=== PATIENT | female | born 1950 | race Caucasian/White ===

== ENCOUNTER → 2019-01-04 09:46 | Outpatient (CLI) | payer OTHER, SELFPAY ==
[2019-01-04 10:53] LABS: Homocysteine 12.8 umol/L (3.2-10.7)
[2019-01-09 20:08] LABS: Dilute Russell Viper Venom 36.4 sec (0.0-47.0); PTT-LA 32.9 sec (0.0-51.9); Protein C Antigen 111 % (60-150); Protein C, Functional 147 % (73-180)
[2019-01-10 15:54] LABS: Anti-Cardiolipin Ab, IgA, Qn < 9 APL U/mL (0-11); Anti-Cardiolipin Ab, IgG, Qn < 9 GPL U/mL (0-14); Anti-Cardiolipin Ab, IgM, Qn < 9 MPL U/mL (0-12); Antithrombin 3 Function 118 % (75-135); Interpretation Comment: (.); Protein S, Free 122 % (57-157); Protein S, Funtional 110 % (63-140); Protein S, Total 106 % (60-150)
== END ==
LOC: LAB 09:50
PROVIDERS: Family Provider Internal Medicine; PCP Internal Medicine; Referring Provider Surgery; Visit Provider Surgery
DX: I73.9 Peripheral vascular disease, unspecified (principal); I87.2 Venous insufficiency (chronic) (peripheral)
CPT/HCPCS: 36415; 81241; 83090; 85300; 85302; 85303; 85305; 85306; 86147

== ENCOUNTER → 2019-05-20 15:00 | Outpatient (CLI) | payer OTHER, SELFPAY ==
[2019-05-20 16:27] LABS: D-Dimer Quantitative (DVT/PE) 0.29 FEU/ug/m (0.27-0.49)
== END ==
PROVIDERS: Family Provider Internal Medicine; PCP Internal Medicine; Referring Provider Surgery; Visit Provider Surgery
DX: I82.409 Acute embolism and thrombosis of unspecified deep veins of unspecified lower extremity (principal); I87.029 Postthrombotic syndrome with inflammation of unspecified lower extremity
CPT/HCPCS: 36415; 85379

== ENCOUNTER → 2019-09-18 09:55 | Outpatient (CLI) | payer OTHER, SELFPAY ==
--- NOTE | 2019-09-18 10:08 | EKG12_ITS ---
Test Reason : PREOP Blood Pressure : / mmHG Vent. Rate : 071 BPM Atrial Rate : 071 BPM P-R Int : 162 ms QRS Dur : 084 ms QT Int : 402 ms P-R-T Axes : 049 -16 -07 degrees QTc Int : 436 ms Normal sinus rhythm Possible Left atrial enlargement Cannot rule out Anterior infarct , age undetermined Abnormal ECG Confirmed by KENDRICK BAH ([id number]), multimedia editor KEISHA ANGUIANO ([id number]) on 09/20/2019 11:29:50 AM Referred By: Butch Randall Confirmed By:KENDRICK BAH
[2019-09-18 10:32] LABS: Hematocrit 40.3 % (37-47); Hemoglobin 13.4 g/dL (12.0-15.0); Mean Corp Hgb Conc 33.3 g/dL (32-36); Mean Corpuscular Hgb 30.9 pg (27.0-32.0); Mean Corpuscular Volume 92.9 fL (81-99); Mean Platelet Vol. 10.1 fl (6.2-12.0); Platelet Count 270 K/mm3 (150-450); RBC Distribution Width CV 12.3 % (11.6-14.6); Red Blood Count 4.34 M/mm3 (4.2-5.4); White Blood Count 7.9 K/mm3 (4.4-11.0)
[2019-09-18 10:48] LABS: Anion Gap 9 (5-15); BUN 35 mg/dL (7-18); BUN/Creat Ratio 31.2 RATIO (10-20); Calcium,Total 9.5 mg/dL (8.5-10.1); Chloride 102 mmol/L (98-107); Creatinine, Serum 1.12 mg/dL (0.55-1.02); EST Glomerular Filtration Rate 51 mL/min (>60); Est Glom Filt Rate - Afr Amer 62 mL/min (>60); Glucose 111 mg/dL (74-106); Potassium 3.4 mmol/L (3.5-5.1); Sodium Level 139 mmol/L (136-145)
== END ==
PROVIDERS: Family Provider Internal Medicine; PCP Internal Medicine; Referring Provider Surgery; Visit Provider Surgery
DX: Z01.812 Encounter for preprocedural laboratory examination (principal); Z01.810 Encounter for preprocedural cardiovascular examination
CPT/HCPCS: 36415; 80048; 85027; 93005

== ENCOUNTER 2020-12-29 12:23 | Outpatient (RCR) | payer MEDICARE, SELFPAY ==
[2020-12-29] MEDS: COVID-19 VACC, MRNA(PFIZER)/PF 30 MCG/0.3 ML SYRINGE IM (18:26)
[2021-01-19] MEDS: COVID-19 VACC, MRNA(PFIZER)/PF 30 MCG/0.3 ML SYRINGE IM (07:34)
== END 2021-03-30 23:59 ==
LOC: IMMUN 12:23
PROVIDERS: PCP Internal Medicine; Visit Provider Family Medicine
DX: Z23 Encounter for immunization (principal)
CPT/HCPCS: 0001A; 0002A; 91300

== ENCOUNTER → 2021-01-14 08:54 | Outpatient (CLI) | payer MEDICARE, SELFPAY ==
--- NOTE | 2021-01-14 08:55 | EKG12_ITS ---
Test Reason : PREOP Blood Pressure : / mmHG Vent. Rate : 064 BPM Atrial Rate : 064 BPM P-R Int : 168 ms QRS Dur : 084 ms QT Int : 418 ms P-R-T Axes : 038 001 008 degrees QTc Int : 431 ms Normal sinus rhythm Normal ECG Confirmed by FELIPE EDDY, YENNI ([id number]), pulmonology physician MIGUEL ANGEL DAVISON ([id number]) on 01/15/2021 9:36:18 AM Referred By: Butch Randall Confirmed By:TAYLOR WANG MD
[2021-01-14 09:48] LABS: Hematocrit 39.2 % (37-47); Hemoglobin 12.5 g/dL (12.0-15.0); Mean Corp Hgb Conc 31.9 g/dL (32-36); Mean Corpuscular Hgb 30.2 pg (27.0-32.0); Mean Corpuscular Volume 94.7 fL (81-99); Mean Platelet Vol. 10.1 fl (6.2-12.0); Platelet Count 279 K/mm3 (150-450); RBC Distribution Width CV 12.5 % (11.6-14.6); RBC Distribution Width SD 43.3 fl (35.1-43.9); Red Blood Count 4.14 M/mm3 (4.2-5.4)
[2021-01-14 10:22] LABS: Anion Gap 4 (5-15); BUN 20 mg/dL (7-18); BUN/Creat Ratio 20.4 RATIO (10-20); Calcium,Total 9.1 mg/dL (8.5-10.1); Chloride 104 mmol/L (98-107); Creatinine, Serum 0.98 mg/dL (0.55-1.02); EST Glomerular Filtration Rate 60 mL/min (>60); Est Glom Filt Rate - Afr Amer 72 mL/min (>60); Glucose 95 mg/dL (74-106); Sodium Level 141 mmol/L (136-145)
== END ==
PROVIDERS: PCP Internal Medicine; Referring Provider Surgery; Visit Provider Surgery
DX: Z01.810 Encounter for preprocedural cardiovascular examination (principal)
CPT/HCPCS: 36415; 80048; 85027; 87635; 93005; C9803; U0002